=== PATIENT | male | born 1985 | race Caucasian/White ===

== ENCOUNTER 2019-06-10 09:33 | Emergency (ER) | payer MEDICAID, OTHER ==
[~2019-06-10] VITALS: Ht 182.9 cm; Wt 74.8 kg
[2019-06-10 10:12] VITALS: BP 135/83
== END 2019-06-10 10:30 | disposition home or self-care (01) ==
LOC: ER 09:33
DX: S62.324A Displaced fracture of shaft of fourth metacarpal bone, right hand, initial encounter for closed fracture (principal); Y08.89XA Assault by other specified means, initial encounter; Y93.89 Activity, other specified; Y99.8 Other external cause status; Y92.89 Other specified places as the place of occurrence of the external cause
CPT/HCPCS: 29125; 73130

== ENCOUNTER 2021-05-12 20:54 | Emergency (ER) | payer MEDICAID, OTHER ==
[~2021-05-12] VITALS: Ht 182.9 cm; Wt 77.1 kg
[2021-05-12 23:16] VITALS: BP 156/102
== END 2021-05-13 02:30 | disposition home or self-care (01) ==
LOC: ER 20:55
DX: S93.402A Sprain of unspecified ligament of left ankle, initial encounter (principal); X50.9XXA Other and unspecified overexertion or strenuous movements or postures, initial encounter; Y93.01 Activity, walking, marching and hiking; Y92.89 Other specified places as the place of occurrence of the external cause; Y99.8 Other external cause status
CPT/HCPCS: 73610; 73630

== ENCOUNTER 2025-08-10 18:05 | Inpatient (IN) | payer MEDICAID, OTHER ==
[~2025-08-10] VITALS: Ht 180.3 cm; Wt 68.1 kg
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
[2025-08-10 19:50] LABS: Hematocrit 45.8 % (41.0-53.0); Hemoglobin 15.5 g/dL (13.5-17.5); Mean Corpuscular Hemoglobin 29.6 pg (28.0-32.0); Mean Corpuscular Volume 87.9 fL (80.0-100.0); Nucleated Red Blood Cells % 0.3 %
[2025-08-10 20:10] LABS: Alanine Aminotransferase 268 U/L (7-40); Albumin 5.0 g/dL (3.2-4.8); Alkaline Phosphatase 132 U/L (46-116); Anion Gap 10 (5-15); BUN/Creatinine Ratio 9.8 (10.0-20.0); Bilirubin, Total 0.7 mg/dL (0.2-1.0); Blood Urea Nitrogen 9 mg/dL (9-23); Calcium 9.8 mg/dL (8.7-10.4); Carbon Dioxide 30 mmol/L (20-31); Chloride 104 mmol/L (98-107); Glucose 72 mg/dL (74-106); Potassium 4.5 mmol/L (3.5-5.1); Sodium 144 mmol/L (136-145); Total Protein 7.6 g/dL (5.7-8.2)
[2025-08-10] MEDS: ONDANSETRON HCL 4 MG/2 ML VIAL IV ONE (20:37)
[2025-08-10] MEDS: MORPHINE SULFATE 4 MG/ML SYR/VIAL IV ONE (20:38)
[2025-08-10] MEDS: IOHEXOL 300 MG/ML 100ML BOTTLE IJ ONE (21:24)
--- NOTE | 2025-08-10 21:36 | DVH ---
CLINICAL INDICATION: injury TECHNIQUE: 3 radiographic views of the right hand were obtained. COMPARISON: None FINDINGS/IMPRESSION: Old healed fracture of the distal aspect of the 5th metacarpal.
--- NOTE | 2025-08-10 21:40 | DVH ---
PROCEDURE: CT CHEST WITH CONTRAST Reason for study/Clinical History: r/o contusion versus infection Comparison Study: CT CHEST WITHOUT CONTRAST on DOS: 08/10/25 Exam Date: 08/10/2025 08:53 PM Radiation Dose Information: CT Dose: CTDI volume is 8.28 mGy. Dose-length product is 329.53 mGy*cm Contrast: Type of contrast: Omnipaque 350 Contrast inject: 100 TECHNIQUE: After the uneventful administration of intravenous contrast intravenously, CT imaging was performed through the chest. Coronal and sagittal reformations were performed by the technologist. FINDINGS: Lower Neck: Visualized portions of the thyroid gland are unremarkable. Aorta and Vasculature: Normal caliber of thoracic aorta. Lymph Nodes: No enlarged intrathoracic lymph nodes. Mediastinum: Heart size is normal. There is no pericardial effusion. The esophagus is unremarkable. Lungs: No focal consolidation, pleural effusion or significant pneumothorax. No suspicious pulmonary nodule or mass. Musculoskeletal: No acute osseous abnormality. Upper abdomen: Limited portions of the upper abdomen are unremarkable. IMPRESSION: No evidence of acute intrathoracic abnormality identified. All CT scans at this medical facility are performed using dose modulation techniques as appropriate to a performed exam including the following: Automated exposure control was utilized; adjustment of the MA and/or KV according to patient size; and use of iterative reconstruction technique.
[2025-08-10] MEDS: HYDROmorphone HCL 2 MG/ML VL/or syr IV ONE (21:45)
[2025-08-10 22:01] VITALS: PULSE 74; RESP 18; O2SAT 96
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
[2025-08-11] VITALS (8 sets, daily range): BP systolic 106–149; BP diastolic 67–90; PULSE 72–91; RESP 16–20; TEMP 97.3–98.4; O2SAT 16–100
[2025-08-11] MEDS ORDERED: IBUPROFEN 600 MG TAB PO PRN (01:00)
[2025-08-11] MEDS ORDERED: ONDANSETRON HCL 4 MG/2 ML VIAL IV PRN (01:00)
[2025-08-11] MEDS: MORPHINE SULFATE 4 MG/ML SYR/VIAL IV PRN (03:13)
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
[2025-08-11 09:32] LABS: Hematocrit 42.1 % (41.0-53.0); Hemoglobin 14.4 g/dL (13.5-17.5); Mean Corpuscular Hemoglobin 29.9 pg (28.0-32.0); Mean Corpuscular Volume 87.6 fL (80.0-100.0); Nucleated Red Blood Cells % 0.1 %
[2025-08-11 09:54] LABS: Albumin 4.4 g/dL (3.2-4.8); Anion Gap 11 (5-15); BUN/Creatinine Ratio 9.5 (10.0-20.0); Calcium 9.1 mg/dL (8.7-10.4); Carbon Dioxide 27 mmol/L (20-31); Chloride 101 mmol/L (98-107); Potassium 3.6 mmol/L (3.5-5.1); Sodium 139 mmol/L (136-145); Total Protein 6.7 g/dL (5.7-8.2)
[2025-08-11 09:55] LABS: Bilirubin, Total 1.0 mg/dL (0.2-1.0)
[2025-08-11 10:19] LABS: Alanine Aminotransferase 200 U/L (7-40); Alkaline Phosphatase 118 U/L (46-116); Blood Urea Nitrogen 9 mg/dL (9-23); Glucose 150 mg/dL (74-106)
[2025-08-11] MEDS: OXYCODONE W/ ACETAMINOPHEN 5/325MG TABLET PO PRN (16:35)
[2025-08-12 05:00] VITALS: BP 132/82; PULSE 77; RESP 17; TEMP 97.7; O2SAT 98
[2025-08-12 07:35] LABS: Hematocrit 42.0 % (41.0-53.0); Hemoglobin 14.2 g/dL (13.5-17.5); Mean Corpuscular Hemoglobin 29.5 pg (28.0-32.0); Mean Corpuscular Volume 87.4 fL (80.0-100.0); Nucleated Red Blood Cells % 0.4 %
[2025-08-12 07:45] LABS: Albumin 4.1 g/dL (3.2-4.8); Alkaline Phosphatase 107 U/L (46-116); Anion Gap 9 (5-15); BUN/Creatinine Ratio 12.5 (10.0-20.0); Blood Urea Nitrogen 11 mg/dL (9-23); Calcium 9.0 mg/dL (8.7-10.4); Carbon Dioxide 29 mmol/L (20-31); Chloride 103 mmol/L (98-107); Glucose 87 mg/dL (74-106); Potassium 4.2 mmol/L (3.5-5.1); Sodium 141 mmol/L (136-145); Total Protein 6.3 g/dL (5.7-8.2)
[2025-08-12 07:46] LABS: Bilirubin, Total 0.8 mg/dL (0.2-1.0)
[2025-08-12 07:47] LABS: Alanine Aminotransferase 149 U/L (7-40)
[2025-08-12 08:00] VITALS: PULSE 74; RESP 18; O2SAT 98
[2025-08-12 08:47] VITALS: BP 129/88; PULSE 77; RESP 20; TEMP 98; O2SAT 97
[2025-08-12 13:11] VITALS: BP 111/69; PULSE 72; RESP 20; TEMP 98; O2SAT 97
[2025-08-12] MEDS ORDERED: NALO4SPR2 (15:39)
[2025-08-12] MEDS ORDERED: DOCU-94 PO (15:39)
[2025-08-12] MEDS ORDERED: PERCOT PO ×2 (15:39→17:31)
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
[2025-08-12 17:05] VITALS: BP 114/80; PULSE 76; RESP 20; TEMP 98.6; O2SAT 98
[2025-08-12 17:19] VITALS: BP 131/74; PULSE 74; RESP 20; TEMP 98.8; O2SAT 97
[2025-08-12] MEDS ORDERED: methylPREDNISolone SOD SUCC 40 MG/ML VL ONE (23:47)
== END 2025-08-12 18:00 | disposition home or self-care (01) | DRG 384 ==
LOC: ER 18:05 → OVERFLOW 08-11 00:46 → EAST 08-11 02:53
PROVIDERS: ADMIT Internal Medicine; ATTEND Internal Medicine
DX: S30.13XA Contusion of flank (latus) region, initial encounter (principal); R74.01 Elevation of levels of liver transaminase levels; S30.11XA Contusion of abdominal wall, initial encounter; Z79.899 Other long term (current) drug therapy; V89.9XXA Person injured in unspecified vehicle accident, initial encounter; Y93.55 Activity, bike riding; Y92.89 Other specified places as the place of occurrence of the external cause; Y99.8 Other external cause status
CPT/HCPCS: 36415; 70450; 71250; 71260; 73130; 74176; 80053; 82553; 84484; 85025; 96374; 96375; G0378; J2405